=== PATIENT | female | born 1975 | race Caucasian/White ===

== ENCOUNTER 2019-10-13 23:48 | Inpatient (IN) | payer MEDICAID ==
[~2019-10-13] VITALS: Ht 157.5 cm; Wt 83.0 kg
[2019-10-13 23:51] VITALS: Ht 157.5 cm; Wt 83.0 kg
[2019-10-14 02:14] LABS: BASOPHIL % 0.4 % (0-2); RED CELL DISTRIBUTION WIDTH 14.2 % (11.5-14.5)
[2019-10-14 02:17] LABS: PLATELET COUNT 459 x10^3mcL (130-400)
[2019-10-14 02:23] LABS: CALCIUM 9.5 mg/dL (8.5-10.1); CARBON DIOXIDE 26.5 mmol/L (21-32); CHLORIDE SERUM 99 mmol/L (98-107); CREATININE SERUM 0.8 mg/dL (0.6-1.0); GFR1 > 60 mL/min; GLUCOSE SERUM 171 mg/dL (74-106); POTASSIUM SERUM 3.7 mmol/L (3.5-5.1); SODIUM SERUM 137 mmol/L (136-145)
[2019-10-14 02:34] LABS: ALBUMIN 3.9 g/dL (3.4-5.0); ALKALINE PHOSPHATASE 124 U/L (46-116); ALT/SGPT 23 U/L (14-59); AST/SGOT 9 U/L (15-37)
[2019-10-14 02:36] LABS: TOTAL PROTEIN, SERUM 8.3 g/dL (6.4-8.2)
--- NOTE | 2019-10-14 03:21 | NUR ---
PT PRESENTS TO ER TODAY WITH C/O CHEST PAIN THAT STARTED YESTERDAY. PER PT SHE HAD A PANIC ATTACK AT APPROX 2300 YESTERDAY WHICH STARTED HER CP. PT STATES THAT HER CP HAS SINCE RESOLVED. PT NOW REPORTING PALPATATIONS AND NUASEA BUT DENIES ANY PAIN. PT DENIES ANY RECENT ILLNESS, OR COUGH. PT DENIES ANY FEVERS AT HOME. PT IS A/O X4. RESP ARE E/U. NO ACUTE DISTRESS NOTED.
[2019-10-14 05:10] LABS: microscopic required? YES; urine erythrocyte 2+ (NEGATIVE)
[2019-10-14 05:22] LABS: MAGNESIUM 1.6 mg/dL (1.8-2.4); PHOSPHOROUS 3.6 mg/dL (2.5-4.9)
--- NOTE | 2019-10-14 06:19 | NUR ---
PT RESTING IN BED WITH EYES CLOSED. PT ALERT TO VERBAL STIMULI AND MEDICATED PER EMAR. PT DENIES ANY PAIN AT THIS TIME AND VITALS ARE STABLE. NO ACUTE DISTRESS NOTED.
--- NOTE | 2019-10-14 07:36 | NUR ---
REPORT GIVEN TO DONG TO ASSUME CARE OF PT.
--- NOTE | 2019-10-14 07:37 | NUR ---
MEAL TRAY GIVEN TO PT AT BEDSIDE, PRIMARY NURSE TOKO NOTIFIED
--- NOTE | 2019-10-14 08:52 | NUR ---
RECEIVED PT FROM ER. PT AOX4, FOLLOWS COMMANDS, SPEECH CLEAR, PERRLA, DENIES HEADACHE/DIZZINESS. ON TELE 15 SHOWING NSR, HR: 78, S1 AND S2 WNL, DENIES CHEST PAIN OR PRESSURE. RESP E/U ON RA, EQUAL CHEST RISE, LUNGS CTA, DENIES SOB. ABD SOFT/ROUND/NONTENDER, BS ACTIVE, DENIES ABD PAIN OR N/V. SKIN WARM, DRY AND INTACT. IV TO L HAND, SALINE LOCKED W/ NO ERYTHEMA OR EDEMA. BED IN LOWEST POSITION AND CALL LIGHT WITHIN REACH. FAMILY AT BEDSIDE. WILL CONTINUE TO MONITOR.
[2019-10-14 13:06] VITALS: BP 123/60
--- NOTE | 2019-10-14 15:15 | NUR ---
Discount pharmacy card and list to [facility] given to patient by Elvi Musa.
[2019-10-14 15:51] VITALS: BP 113/63
[2019-10-14 17:28] VITALS: BP 117/70
--- NOTE | 2019-10-14 18:12 | NUR ---
PT RESTING IN BED, AXO4, RESP E/U ON RA. DENIES CHEST PAIN/TIGHTNESS OR SOB AT THIS TIME, NO ACUTE DISTRESS NOTED. IV TO L HAND, SALINE LOCKED W/ NO ERYTHEMA OR EDEMA. BED IN LOWEST POSITION AND CALL LIGHT WITHIN REACH. WILL ENDROSE TO ONCOMING NURSE.
--- NOTE | 2019-10-14 19:45 | NUR ---
CARE ASSUMED FROM OUTGOING RN. PT RESTING COMFORTABLY IN BED. FAMILY AT BEDSIDE. NO ACUTE DISTRESS NOTED. EVEN AND UNLABORED RESPIRATIONS ON RA. ON TELE# 15 READING NSR. IVL INTACT. NO C/O CHEST PAIN/PRESSURE AT THIS TIME. C/O 6/10 HEADACHE, WILL MEDICATE PER EMAR. BED IN LOWEST POSITION. SIDE RAILS UPX2. CALL LIGHT WITHIN REACH. WILL CONTINUE TO MONITOR.
[2019-10-14 20:09] VITALS: BP 124/54
--- NOTE | 2019-10-15 00:14 | NUR ---
PT RESTING COMFORTABLY IN BED WITH EYES CLOSED. FAMILY AT BEDSIDE. NO ACUTE DISTRESS NOTED. EVEN AND UNLABORED RESPIRATIONS ON RA. ON TELE# 15 READING SR 78. IVL INTACT. BED IN LOWEST POSITION. SIDE RAILS UPX2. CALL LIGHT WITHIN REACH. WILL CONTINUE TO MONITOR.
[2019-10-15 05:34] VITALS: BP 116/56
[2019-10-15 06:31] LABS: BASOPHIL % 0.5 % (0-2); PLATELET COUNT 395 x10^3mcL (130-400); RED CELL DISTRIBUTION WIDTH 14.3 % (11.5-14.5)
[2019-10-15 06:33] LABS: CALCIUM 8.5 mg/dL (8.5-10.1); CHLORIDE SERUM 103 mmol/L (98-107); CREATININE SERUM 0.7 mg/dL (0.6-1.0); GFR1 > 60 mL/min; GLUCOSE SERUM 126 mg/dL (74-106); POTASSIUM SERUM 3.4 mmol/L (3.5-5.1); SODIUM SERUM 137 mmol/L (136-145)
--- NOTE | 2019-10-15 07:20 | NUR ---
RECIEVED PT FROM NIGHT NURSE. PT IS LAYING DOWN IN BED WITH HOB UP RESTING. PT LOOKS TO BE IN NO ACUTE DISTRESS AT THIS TIME AND DENIES ANY PAIN. RESPIRATIOS EVEN AND UNLABORED ON ROOM AIR. IV SITE PATENT WITH NO SIGNS OF ERYTHEMA OR SWELLING. TELE MONITOR PRESENT. PT VOIDED AND UDS WAS COLLECTED. CALL LIGHT WITHIN REACH. WILL CONTINUE TO MONITOR.
--- NOTE | 2019-10-15 07:27 | NUR ---
PT SLEPT IN INTERVALS THROUGHOUT THE SHIFT. ALL NEEDS TENDED TO AND MET. NO C/O CHEST PAIN/PRESSURE THROUGHOUT THE SHIFT. C/O HEADACHE AND NAUSEA MEDICATED PER EMAR. WILL ENDORSE TO ONCOMING SHIFT.
[2019-10-15 08:38] VITALS: BP 105/60
[2019-10-15 09:07] LABS: AMPHETAMINE QUAL UR NONE DETECTED (See below)
[2019-10-15 11:50] VITALS: BP 100/59
--- NOTE | 2019-10-15 12:15 | NUR ---
PT IS LAYING DOWN IN BED WITH HOB UP RESTING. PT LOOKS TO BE IN NO ACUTE DISTRESS AND DENIES ANY PAIN. FAMILY MEMBER AT BEDSIDE. WILL CONTINUE TO MONITOR.
[2019-10-15 16:33] VITALS: BP 122/71
--- NOTE | 2019-10-15 18:54 | NUR ---
PT IS LAYING DOWN IN BED WITH HOB UP. PT LOOKS TO BE IN NO ACUTE DISTRESS AT THIS TIME AND DENIES ANY PAIN. RESPIRATIONS EVEN AND UNLABORED ON ROOM AIR. IV SITE PATENT WITH NO SIGNS OF ERYTHEMA OR SWELLING. FAMILY MEMBERS AT BEDSIDE. WILL CONTINUE ENDORSE TO ONCOMING SHIFT.
[2019-10-15 19:15] VITALS: BP 117/74
--- NOTE | 2019-10-15 19:25 | NUR ---
CARE ASSUMED FROM OUTGOING RN. PT RESTING COMFORTABLY IN BED. FAMILY AT BEDSIDE. NO ACUTE DISTRESS NOTED. EVEN AND UNLABORED RESPIRATIONS ON RA. ON TELE# 15 READING NSR. IVL INTACT. NO C/O CHEST PAIN/PRESSURE. BED IN LOWEST POSITION. SIDE RAILS UPX2. CALL LIGHT WITHIN REACH. WILL CONTINUE TO MONITOR.
--- NOTE | 2019-10-16 01:26 | NUR ---
PT RESTING COMFORTABLY IN BED WITH EYES CLOSED. FAMILY AT BEDSIDE. NO ACUTE DISTRESS NOTED. EVEN AND UNLABORED RESPIRATIONS ON RA. ON TELE READING NSR. IVL INTACT. BED IN LOWEST POSITION. SIDE RAILS UPX2. CALL LIGHT WITHIN REACH. WILL CONTINUE TO MONITOR.
[2019-10-16 05:49] VITALS: BP 102/55
--- NOTE | 2019-10-16 06:08 | NUR ---
PT SLEPT IN INTERVALS THROUGHOUT THE SHIFT. ALL NEEDS TENDED TO AND MET. ALL SCHEDULED MEDICATIONS GIVEN. NO C/O CHEST PAIN/PRESSURE THROUGHOUT THE SHIFT. ON TELE READING NSR. BLOOD SUGARS CHECKED,125 AND 135, NO COVERAGE NEEDED PER SLIDING SCALE. VS STABLE. WILL ENDORSE TO ONCOMING SHIFT.
--- NOTE | 2019-10-16 08:07 | NUR ---
AT 0705 - RECEIVED PATIENT FROM NIGHT NURSE. AWAKE, ALERT AND ORIENTED. MONITOR SHOWING SINUS RHYTHM; RATE 70. DENIES ANY CHEST PAIN. RESPIRATIONS REGULAR. AT 0745 - SITTING ON SIDE OF BED FOR BREAKFAST.
[2019-10-16 08:11] VITALS: BP 124/64
[2019-10-16] MEDS ORDERED: LIPI10 PO (11:32)
[2019-10-16 11:47] VITALS: BP 124/64
[2019-10-16 12:13] VITALS: BP 117/62
--- NOTE | 2019-10-16 12:24 | NUR ---
AT 1210 - PRINTED DISCHARGE INSTRUCTIONS GIVEN AND EXPLAINED TO PATIENT. PRESCRIPTION PROVIDED. IV CATHETER REMOVED ITNACT AND PATIENT TAKEN OFF CARDIAC MONITORING. PREPARED FOR DISCHARGE. AT 1220 - DISCHARGED HOME WITH FAMILY. TAKEN TO DISCHARGE OFFICE BY DASHAWN.
== END 2019-10-16 12:20 | disposition home or self-care (01) | DRG 756 ==
LOC: ED 23:48 → DU 10-14 04:34
PROVIDERS: Emergency Medicine; ADMIT Family Medicine
DX: F43.0 Acute stress reaction (principal); E11.65 Type 2 diabetes mellitus with hyperglycemia; E87.2 Acidosis; E83.42 Hypomagnesemia; F41.0 Panic disorder [episodic paroxysmal anxiety]; R07.89 Other chest pain; D72.828 Other elevated white blood cell count; E78.5 Hyperlipidemia, unspecified; Z68.33 Body mass index [BMI] 33.0-33.9, adult
CPT/HCPCS: 82962; 83880; 85378; 90658; G0378; J0696; J2405; J7050; J7060; Q0092